=== PATIENT | female | born 1955 | race Caucasian/White ===

== ENCOUNTER → 2018-11-23 10:32 | Outpatient (CLI) | payer OTHER, SELFPAY ==
--- NOTE | 2018-11-23 10:37 | XR_ITS ---
XR chest 2V HISTORY: Wheezing with rhonchi, cough ITS.REASON: COUGH ORDERING PHYSICIAN: Peter Isaac MD PATIENT AGE: 63 years COMPARISON: 01/14/2015 FINDINGS: The cardiomediastinal silhouette and pulmonary vascularity are within normal limits. The lungs are clear without infiltrates, suspicious nodules, or pleural effusions. There is mild hyperinflation suggesting small airway disease. No acute bony abnormalities. IMPRESSION: Mild hyperinflation otherwise negative chest
== END ==
PROVIDERS: PCP Internal Medicine Adolescent Medicine; Visit Provider Internal Medicine Adolescent Medicine
DX: R05 Cough (principal)
CPT/HCPCS: 71046

== ENCOUNTER → 2019-02-18 10:10 | Outpatient (CLI) | payer OTHER, SELFPAY ==
[2019-02-18 10:51] LABS: Blood Urea Nitrogen 14 mg/dL (7-18); Estimated Glomerular Filt Rate 72 ml/min (>60); GFR (African American) 88 ML/MIN (>60)
--- NOTE | 2019-02-18 11:02 | CT_ITS ---
CT chest w con HISTORY: ITS.REASON: COUGH, wheeze, rhonchi ORDERING PHYSICIAN: Scott Linotn MD PATIENT AGE: 63 years COMPARISON: None TECHNIQUE: Axial images obtained following the administration of 75 mL of Optiray 350 . Sagittal, and coronal reformatted images are also generated and reviewed. All CT scans at the facility use one or more dose reduction, viz: automated exposure control, ma/kV adjustment per patient size (including targeted exams where dose is matched to indication, i.e. head), or iterative reconstruction technique. FINDINGS: Normal heart size. No evidence of aortic aneurysm or central pulmonary embolus. There are few scattered small mediastinal lymph nodes. There is coarsening of the interstitial markings. There is evidence of old granulomatous disease or dependent changes are present in the lung bases. No central obstructing lesions. No effusions or infiltrates. There is a faint groundglass subpleural opacity in the right lower lobe posteriorly 7 x 4 mm Upper abdominal images are unremarkable. IMPRESSION: Mild prominence of the interstitium suggesting mild interstitial lung disease. Groundglass subpleural opacity right lower lobe at 7 x 4 mm. Nonspecific. Consider 6 month follow-up
--- NOTE | 2019-02-18 11:26 | HMH.ITSHM ---
Current Home Medications as stated by this patient Mehreen Lloyd or client care representative. []INHALER
[2019-02-18 11:45] VITALS: PULSE 77
== END ==
PROVIDERS: Visit Provider Internal Medicine Adolescent Medicine
DX: R05 Cough (principal); R04.2 Hemoptysis; J30.2 Other seasonal allergic rhinitis
CPT/HCPCS: 36415; 71260; 82565; 84520; 94060; 94640; 94726; 94729; Q9967

== ENCOUNTER → 2019-04-26 15:42 | Outpatient (CLI) | payer OTHER, SELFPAY ==
--- NOTE | 2019-04-26 15:46 | MM_ITS ---
MM Dig screening mamm BI w/CAD CAD Screening COMPARISON: Digital mammograms with CAD 05/19/2016 INDICATION: There is a history of breast cancer in patient's sister diagnosed at age 40. There has been previous biopsy right breast for benign disease. TECHNIQUE: Standard CC and MLO images were obtained. R2 CAD reviewed. FINDINGS: Moderate fibroglandular densities are seen in the central portions of both breast and the findings are bilateral and symmetrical. There is no suspicious lesion in either breast and there are no suspicious microcalcifications. There are couple benign-appearing calcifications in each breast. There is faint arterial calcification left breast. IMPRESSION: Moderate breast density with no suspicious lesion seen BI-RADS Category: 2 Benign Finding(s) RECOMMENDED FOLLOW-UP: 1YR - 1 YEAR FOLLOW-UP (A letter has been sent to the patient regarding results of the study.)
== END ==
PROVIDERS: PCP Internal Medicine Adolescent Medicine; Visit Provider Internal Medicine Adolescent Medicine
DX: Z12.31 Encounter for screening mammogram for malignant neoplasm of breast (principal)
CPT/HCPCS: 77067

== ENCOUNTER → 2020-09-26 14:56 | Outpatient (CLI) | payer MEDICARE, SELFPAY ==
--- NOTE | 2020-09-26 | XR_ITS ---
PROCEDURE: XR HAND LT MIN 3V CLINICAL INDICATION: HAND ARTHRITIS COMPARISON: No exams were available for comparison FINDINGS: No fracture or dislocation. No lytic or blastic change. There is normal mineralization. Mild osteoarthritis of the 1st metacarpal-carpal joint, the 1st interphalangeal joint, and the DIP joints of digits 2 through. Mild osteoarthritis of the scapho trapezium joint Other findings:None. IMPRESSION: Mild osteoarthritis Dictated by: Ariel Fritz MD 09/26/2020 15:40 Ariel Fritz MD in [facility] 09/26/2020 15:40
--- NOTE | 2020-09-26 | XR_ITS ---
PROCEDURE: XR HAND RT MIN 3V CLINICAL INDICATION: HAND ARTHRITIS COMPARISON: No exams were available for comparison FINDINGS: No fracture or dislocation. No lytic or blastic change. There is normal mineralization. There are mild osteoarthritic changes involving the DIP digits 2 through 5 and the interphalangeal joint of the thumb as well as the 1st metacarpal phalangeal joint. No fracture or dislocation. No lytic or blastic change. Other findings:None. IMPRESSION: Mild osteoarthritis Dictated by: Ariel Fritz MD 09/26/2020 15:39 Ariel Fritz MD in [facility] 09/26/2020 15:39
== END ==
PROVIDERS: PCP Internal Medicine Adolescent Medicine; Visit Provider Internal Medicine Adolescent Medicine
DX: M19.042 Primary osteoarthritis, left hand (principal); M19.041 Primary osteoarthritis, right hand
CPT/HCPCS: 73130

== ENCOUNTER → 2021-09-04 10:43 | Outpatient (CLI) | payer MEDICARE, OTHER, SELFPAY ==
--- NOTE | 2021-09-04 10:46 | MM_ITS ---
PROCEDURE INFORMATION: Exam: MG Bilateral Screening 3D Mammography Exam date and time: 09/04/2021 10:46 AM Age: 66 years old Clinical indication: Screening exam; Family history of breast cancer; Prior surgery; Surgery date: 6+ months TECHNIQUE: Imaging protocol: Bilateral screening tomosynthesis and 2D mammography including computer-aided detection (CAD) when performed. COMPARISON: 1. MG DIG MAMM-SCREEN ERI 04/26/2019 3:54 PM 2. MG DMSB DIG MAMM-SCREEN ERI 05/19/2016 9:53 AM 3. MG DMSB DIG MAMM-SCREEN ERI 12/11/2014 3:20 PM FINDINGS: MAMMOGRAPHY: Breast composition: The breasts are heterogeneously dense, which may obscure small masses. Mass: No suspicious masses. Architectural distortion: No suspicious distortion. Calcifications: No suspicious calcifications. Asymmetric density: None. Skin thickening: None. Axillary adenopathy: None. IMPRESSION: No mammographic evidence of malignancy. Annual screening is recommended unless otherwise clinically indicated. ASSESSMENT: BI-RADS Category 1: Negative
== END ==
PROVIDERS: PCP Internal Medicine Adolescent Medicine; Visit Provider Internal Medicine Adolescent Medicine
DX: Z12.31 Encounter for screening mammogram for malignant neoplasm of breast (principal)
CPT/HCPCS: 77063; 77067

== ENCOUNTER 2022-07-16 18:02 | Observation (INO) | payer MEDICARE, OTHER, SELFPAY ==
[2022-07-16 18:03] VITALS: BP 159/83; PULSE 75; RESP 16; TEMP 36.7; O2SAT 100; BMI 21.1
--- NOTE | 2022-07-16 18:06 | ECG_ITS ---
APPROVED REPORT Exam: Resting ECG HR:77 bpm ECG Measurements Heart Rate 77 AXES VA 159 P 55 QRSd 86 QRS 56 QT 364 T 59 QTc 396 Conclusion SINUS RHYTHM MINIMAL ST DEPRESSION [0.025+ mV ST DEPRESSION] BORDERLINE ECG UNCONFIRMED REPORT Electronically signed by : Scott Linton MD 07/17/2022 15:57:15
--- NOTE | 2022-07-16 18:06 | CT_ITS ---
PROCEDURE INFORMATION: Exam: CT Head Without Contrast Exam date and time: 07/16/2022 6:05 PM Age: 67 years old Clinical indication: Stroke-like symptoms; RT upper extremity and RT lower extremity weakness; Additional info: Right side weakness TECHNIQUE: Imaging protocol: Computed tomography of the head without contrast. Radiation optimization: All CT scans at this facility use at least one of these dose optimization techniques: automated exposure control; mA and/or kV adjustment per patient size (includes targeted exams where dose is matched to clinical indication); or iterative reconstruction. Other technique: STROKE PROTOCOL was implemented. COMPARISON: No relevant prior studies available. FINDINGS: Brain: Normal. No hemorrhage. Unremarkable white matter. No mass effect. Cerebral ventricles: No ventriculomegaly. Paranasal sinuses: Visualized sinuses are unremarkable. No fluid levels. Mastoid air cells: Visualized mastoid air cells are well aerated. Bones/joints: Unremarkable. No acute fracture. Soft tissues: Unremarkable. IMPRESSION: No acute intracranial abnormality. ASSESSMENT: ASPECTS ([place] Stroke Program Early CT Score) is 10.
--- NOTE | 2022-07-16 18:07 | XR_ITS ---
PROCEDURE INFORMATION: Exam: XR Chest Exam date and time: 07/16/2022 6:24 PM Age: 67 years old Clinical indication: Cough TECHNIQUE: Imaging protocol: Radiologic exam of the chest. Views: 1 view. COMPARISON: CHESTW CT chest w con 02/18/2019 11:01 AM FINDINGS: Lungs: Unremarkable. No consolidation. Pleural spaces: Unremarkable. No pleural effusion. No pneumothorax. Heart/Mediastinum: Unremarkable. No cardiomegaly. Bones/joints: Unremarkable. IMPRESSION: No acute findings.
--- NOTE | 2022-07-16 18:16 | PC.NURSE ---
PT RETURNED FROM CT
--- NOTE | 2022-07-16 18:20 | PC.NURSE ---
DEIRDRE called to speak with ER Doc about the stroke alert for this pt
[2022-07-16 18:21] LABS: Basophils # 0.1 K/mm3 (0-0.2); Basophils % 2.1 % (0.1-2.0); Eosinophils # 0.1 K/mm3 (0.0-0.4); Eosinophils % 2.1 % (0.1-12.0); Hematocrit 44.8 % (37.0-47.0); Lymphocytes # 2.7 K/mm3 (0.7-4.5); Lymphocytes % 49.1 % (10-50); Mean Corpuscular HGB Conc 33.4 g/dL (31.8-35.4); Mean Corpuscular Hemoglobin 32.2 pg (27.0-31.2); Mean Corpuscular Volume 96.2 fl (81-99); Mean Platelet Volume 7.6 fl (7.4-10.4); Monocytes # 0.3 K/mm3 (0.1-1.0); Monocytes % 4.5 % (1.7-9.3); Neutrophils # 2.3 K/mm3 (1.8-7.8); Neutrophils % 42.2 % (37.0-80.0); Platelet Count 335 K/mm3 (142-424); Red Blood Count 4.65 M/mm3 (4.20-5.40); Red Cell Distribution Width 13.3 % (11.5-17.5); White Blood Count 5.5 K/mm3 (4.8-10.8)
[2022-07-16 18:23] LABS: Chloride 102 mmol/L (98-107); Potassium 3.5 mmoL/L (3.5-5.1); Sodium 142 mmol/L (136-145)
--- NOTE | 2022-07-16 18:25 | CT_ITS ---
PROCEDURE INFORMATION: Exam: CTA Head With Contrast, Arteriography Exam date and time: 07/16/2022 6:37 PM Age: 67 years old Clinical indication: Stroke-like symptoms; Generalized weakness TECHNIQUE: Imaging protocol: Computed tomographic angiography of the head with contrast. Exam focused on the arteries. 3D rendering (Not supervised by radiologist): MIP and/or 3D reconstructed images were created by the technologist. Radiation optimization: All CT scans at this facility use at least one of these dose optimization techniques: automated exposure control; mA and/or kV adjustment per patient size (includes targeted exams where dose is matched to clinical indication); or iterative reconstruction. Contrast material: ISOVUE; Contrast volume: 100 ml; Contrast route: INTRAVENOUS (IV); COMPARISON: CT HEAD/BRAIN WO CON 07/16/2022 6:05 PM FINDINGS: ANTERIOR CIRCULATION: Right internal carotid artery: Intracranial segment is patent with no significant stenosis. No aneurysm. Right middle cerebral artery: No occlusion or significant stenosis. No aneurysm. Right anterior cerebral artery: No occlusion or significant stenosis. No aneurysm. Left internal carotid artery: Intracranial segment is patent with no significant stenosis. No aneurysm. Left middle cerebral artery: No occlusion or significant stenosis. No aneurysm. Left anterior cerebral artery: No occlusion or significant stenosis. No aneurysm. POSTERIOR CIRCULATION: Right vertebral artery: No occlusion or significant stenosis. No aneurysm. Left vertebral artery: No occlusion or significant stenosis. No aneurysm. Basilar artery: No occlusion or significant stenosis. No aneurysm. Right posterior cerebral artery: No occlusion or significant stenosis. No aneurysm. Left posterior cerebral artery: No occlusion or significant stenosis. No aneurysm. Brain: No definite mass, mass effect, or midline shift. Refer to the head CT report from the same day. Cerebral ventricles: No ventriculomegaly. Bones/joints: No acute fracture. Soft tissues: Unremarkable. IMPRESSION: No large vessel arterial occlusion on this CTA head.
--- NOTE | 2022-07-16 18:25 | CT_ITS ---
PROCEDURE INFORMATION: Exam: CTA Neck With Contrast Exam date and time: 07/16/2022 6:37 PM Age: 67 years old Clinical indication: Stroke-like symptoms; Generalized weakness TECHNIQUE: Imaging protocol: Computed tomographic angiography of the neck with contrast. 3D rendering (Not supervised by radiologist): MIP and/or 3D reconstructed images were created by the technologist. Radiation optimization: All CT scans at this facility use at least one of these dose optimization techniques: automated exposure control; mA and/or kV adjustment per patient size (includes targeted exams where dose is matched to clinical indication); or iterative reconstruction. Contrast material: ISOVUE; Contrast volume: 100 ml; Contrast route: INTRAVENOUS (IV); COMPARISON: CT HEAD/BRAIN WO CON 07/16/2022 6:05 PM FINDINGS: Right common carotid artery: Artifact limits evaluation of the proximal right common carotid artery. No significant stenosis or occlusion of the remaining right common carotid artery. Right internal carotid artery: Extracranial segment is patent with no stenosis. No dissection or occlusion. Increased tortuosity of the right internal carotid artery. Right external carotid artery: No occlusion or significant stenosis. Left common carotid artery: Artifact limits evaluation of the left common carotid artery. No occlusion. Left internal carotid artery: Extracranial segment is patent with no stenosis. No dissection or occlusion. Increased tortuosity of the left internal carotid artery. Left external carotid artery: No occlusion or significant stenosis. Right vertebral artery: No significant stenosis. No dissection or occlusion. Left vertebral artery: Mild stenosis at the origin of the left vertebral artery. Atherosclerosis. Right subclavian artery: The right subclavian artery is patent, as visualized. Left subclavian artery: Atherosclerosis and moderate stenosis at the origin of the left subclavian artery. Venous enhancement and artifact limit evaluation of the left subclavian artery. Aorta: Artifact limits evaluation of the ascending aorta. Atherosclerosis of the aortic arch. Larynx: Paraglottic foci of gas, suggestive of laryngoceles. Thyroid: A few thyroid nodules are visualized. Within the left thyroid lobe, there is a 6-7 mm nodule. Lymph nodes: Calcified mediastinal and right hilar lymph nodes are identified, suggestive of granulomatous disease. Soft tissues: No significant soft tissue swelling. Bones/joints: The posterior C1 arch is unfused. Reversal of the lordotic curvature of the cervical spine. Degenerative changes identified at multiple cervical levels. Varying degrees of neural foraminal narrowing are identified at multiple cervical levels. A small central protrusion is identified at C4-C5, with minimal spinal canal stenosis. Mild spinal canal stenosis at C6-C7. Lungs: Nonspecific increased interstitial markings are again visualized. IMPRESSION: 1. No stenosis of the extracranial internal carotid arteries bilaterally using NASCET criteria. Increased tortuosity of these vessels. 2. Atherosclerosis and moderate stenosis at the origin of the left subclavian artery. 3. Mild stenosis at the origin of the left vertebral artery. 4. Additional findings described above. COMMENTS: Consistent with the [employer]'s Incidental Findings Committee white paper (J Am Kierra Radiol 2015): In patients aged 35 years and older with an incidental thyroid nodule equal to or greater than 1.[address], MRI or extrathyroidal US, further evaluation with dedicated thyroid US is recommended for patients with n
[2022-07-16 18:26] LABS: Alanine Aminotransferase 21 U/L (12-78); Albumin Level 4.7 g/dl (3.5-5.0); Albumin/Globulin Ratio 1.4 (1.1-1.8); Alkaline Phosphatase 33 U/L (38-126); Anion Gap 16.5 mEq/L (5-15); Aspartate Amino Transferase 41 U/L (14-36); Bilirubin,Total 0.3 mg/dl (0.2-1.3); Blood Urea Nitrogen 10 mg/dl (7-17); Calcium 9.9 mg/dl (8.4-10.2); Carbon Dioxide 27 mmol/L (22.0-30.0); Creatinine Clearance Estimated 51 mL/min (50-200); Estimated Glomerular Filt Rate 83 ml/min (>60); GFR (African American) 101 ML/MIN (>60); Globulin 3.3 g/dL (1.3-3.2); Glucose 162 mg/dl (74-100)
[2022-07-16 18:29] LABS: Activated Partial Thrombo Time 26.1 seconds (22.8-30.6); INR 0.93 (0.9-1.1); Prothrombin Time 10.1 seconds (10.1-12.5)
[2022-07-16 18:30] VITALS: BP 144/74; PULSE 70; O2SAT 100
[2022-07-16 18:36] LABS: NT Pro Brain Natriuretic Pep. 108 pg/mL (0-125)
--- NOTE | 2022-07-16 18:39 | HMH.EDGENADL ---
Discharge Plan Disposition Patient Disposition: Still a Patient Condition: Fair Prescriptions Prescriptions: No Action No Known Home Medications Referrals Follow up/Referrals: Scott Linton MD [Primary Care Provider] - See instructions Clinical Impressions Clinical Impression: Brain TIA Discharge ED Provider: Elfego Dempsey General Adult HPI General Chief complaint: Extremity Problem,Nontraumatic Stated complaint: poss stroke Time Seen by Provider: 07/16/22 18:10 Mode of Arrival: Wheelchair Source of Information: Patient Limitations: No Limitations Description of Symptoms (Recalled from ER Triage Doc. by RN): c/o right numbness and tingling that started approx 20 minutes prior to arrival. NIHSS 7, glucose was 169 History of Present Illness HPI narrative: This is a 67-year-old female presented to the emergency department with some right-sided weakness. Patient states that it started about 20 minutes prior to arrival. She states that she just finished cleaning up after dinner and sat down. She started getting some numbness and tingling in her right arm and right leg. Feeling her face was numb as well. Patient states that her symptoms have persisted so she came to the emergency department. Patient states that symptoms are slightly improving at this time. She has no medical history. Takes no medications. She denies any headache or change in vision. No chest pain or shortness of breath. No abdominal pain or vomiting. No diarrhea. Related Data Home Medications Medication Instructions Recorded Confirmed No Known Home Medications 07/16/22 07/16/22 Allergies Allergy/AdvReac Type Severity Reaction Status Date / Time No Known Allergies Allergy Verified 10/24/18 10:[address] [facility] Social History Smoking Status: Never smoker alcohol intake: never current occupational status: employed Travel in the last 8 weeks: None household members: family housing: house ROS Obtained: Yes All systems reviewed & no additional complaints except as documented and Yes Systems reviewed as appropriate & no additional complaints except as documented Constitutional Constitutional: Reports weakness Eyes Eyes: Denies change in vision Cardiovascular Cardiovascular: Denies chest pain and Denies dyspnea Respiratory Respiratory: Denies dyspnea Gastrointestinal Gastrointestingal: Denies vomiting Musculoskeletal Musculoskeletal: Denies arthralgias Integumentary/Breasts Skin/Breast: Denies rash Neurologic Neurologic: Reports weakness Physical Exam General General appearance: alert and in no apparent distress Head Head exam: atraumatic and normocephalic Eye Eye exam: Present normal appearance, PERRL and EOMI Respiratory Respiratory exam: Present normal lung sounds bilaterally; Absent respiratory distress Cardiovascular Cardiovascular exam: Present regular rate and normal rhythm Abdominal Exam Abdominal exam: Present soft; Absent distention, tenderness, guarding, rebound, rigidity or mass Extremities Exam Extremities exam: Present normal inspection; Absent tenderness Neurological Exam Neurological exam: Present alert, oriented X3, CN II-XII intact and normal gait Expanded Neurological Exam Comment: Patient has some mild weakness to gravity in the right upper and right lower extremity. Sensation appears intact. There is no dysarthria, no tremor. No dysdiadochokinesia. Medical Decision Making Medical Records Medical records reviewed: Yes I reviewed the patient's medical records. Ronny Inquiry Pt receiving controlled substance: No Vital Signs: 07/16/22 18:03 07/16/22 18:30 Temperature 98.0 F Temperature Source Oral Pulse Rate 70 Pulse Rate [Left Radial] 75 Respiratory Rate 16 Blood Pressure 144/74 H Blood Pressure [Right Arm] 159/83 H Blood Pressure Mean 106 Blood Pressure Mean [Right Arm] 108 Blood Pressure Source [
[2022-07-16 18:41] LABS: Troponin I < 0.01 ng/ml (0.00-0.034)
[2022-07-16 18:57] LABS: Thyroid Stimulating Hormone 0.32 uIU/mL (0.465-4.68)
--- NOTE | 2022-07-16 19:22 | PC.NURSE ---
Dr. Royer zuluaga for ED doctor
--- NOTE | 2022-07-16 19:24 | PC.NURSE ---
Dr. Dempsey s/w [facility]
[2022-07-16 19:48] LABS: Coronavirus 19, PCR Not Detected (NotDetected); Influenza A, PCR Not Detected (NotDetected); Influenza B, PCR Not Detected (NotDetected)
[2022-07-16 20:15] VITALS: BP 123/69; PULSE 69; RESP 16; TEMP 36.8; O2SAT 98
--- NOTE | 2022-07-16 21:26 | PC.NURSE ---
Dr. Linton returned called s/w Dr. Melendez, agrees to nahun. Called [facility], notified for bed assignment.
--- NOTE | 2022-07-16 21:28 | PC.NURSE ---
Updated pt on POC and admission
[2022-07-16 21:30] VITALS: BP 123/69; PULSE 69; RESP 16; TEMP 36.8; O2SAT 97; BMI 21.2
[2022-07-16 21:41] LABS: Troponin I < 0.01 ng/ml (0.00-0.034)
--- NOTE | 2022-07-16 21:45 | PC.NURSE ---
PT ARRIVED TO FLOOR VIA WHEEL CHAIR AT THIS TIME
[2022-07-16 23:00] VITALS: O2SAT 98
[2022-07-17 04:00] VITALS: BP 122/56; PULSE 55; RESP 16; TEMP 36.6; O2SAT 98
--- NOTE | 2022-07-17 04:58 | PC.NURSE ---
pt has rested well t/o shift, has ambulated with standby assist to BR, no complaints of pain or SOA, remains on room air, NIH score 0 this shift
[2022-07-17 06:35] LABS: Basophils % 0.8 % (0.1-2.0); Eosinophils # 0.1 K/mm3 (0.0-0.4); Eosinophils % 2.7 % (0.1-12.0); Hematocrit 41.6 % (37.0-47.0); Lymphocytes # 1.9 K/mm3 (0.7-4.5); Lymphocytes % 38.8 % (10-50); Mean Corpuscular HGB Conc 31.8 g/dL (31.8-35.4); Mean Corpuscular Hemoglobin 31.8 pg (27.0-31.2); Mean Corpuscular Volume 99.9 fl (81-99); Mean Platelet Volume 7.5 fl (7.4-10.4); Monocytes # 0.3 K/mm3 (0.1-1.0); Monocytes % 5.6 % (1.7-9.3); Neutrophils # 2.6 K/mm3 (1.8-7.8); Neutrophils % 52.2 % (37.0-80.0); Platelet Count 294 K/mm3 (142-424); Red Blood Count 4.16 M/mm3 (4.20-5.40); Red Cell Distribution Width 13.2 % (11.5-17.5); White Blood Count 4.9 K/mm3 (4.8-10.8)
[2022-07-17 06:48] LABS: Anion Gap 8.9 mEq/L (5-15); Blood Urea Nitrogen 10 mg/dl (7-17); Calcium 8.8 mg/dl (8.4-10.2); Carbon Dioxide 29 mmol/L (22.0-30.0); Chloride 108 mmol/L (98-107); Creatinine Clearance Estimated 52 mL/min (50-200); Estimated Glomerular Filt Rate 83 ml/min (>60); GFR (African American) 101 ML/MIN (>60); Glucose 88 mg/dl (74-100); Potassium 3.9 mmoL/L (3.5-5.1); Sodium 142 mmol/L (136-145)
[2022-07-17 06:56] LABS: Hemoglobin 13.3 g/dL (12.2-16.2)
--- NOTE | 2022-07-17 07:47 | P.CONPHA_ITS ---
[facility] Pharmacy VTE Monitoring Patient Demographics Admission date: 07/17/22 Report Date: 07/17/22 Time: 07:47 Patient Allergies No Known Allergies Allergy (Verified 07/16/22 22:20) Height: 1.68 m Weight: 59.931 kg Current Active Problems (Updated 07/16/22 @ 22:17 by Madison Walker RN) Brain TIA (Acute) VTE Risk Labs: VTE Related Lab Results Hgb 13.3 g/dL (12.2-16.2) D 07/17/22 06:02 Hct 41.6 % (37.0-47.0) 07/17/22 06:02 Plt Count 294 K/mm3 (142-424) 07/17/22 06:02 PT 10.1 seconds (10.1-12.5) 07/16/22 18:05 INR 0.93 (0.9-1.1) 07/16/22 18:05 APTT 26.1 seconds (22.8-30.6) 07/16/22 18:05 BUN 10 mg/dl (7-17) 07/17/22 06:02 Creatinine 0.70 mg/dl (0.52-1.04) 07/17/22 06:02 Estimated Creat Clear 52 mL/min (50-200) 07/17/22 06:02 VTE Score: 3 VTE Risk Level: Low Risk Prophylaxis VTE Prophylaxis Ordered?: Yes Types of VTE Prophylaxis: TEDS Knee High
[2022-07-17 08:00] VITALS: BP 115/60; PULSE 61; RESP 14; TEMP 36.5; O2SAT 100; O2SAT 97
--- NOTE | 2022-07-17 08:56 | EXP.HPDC ---
General Admission date:: 07/16/22 Discharge date: 07/17/22 *Admission Date: 07/17/22 *Chief complaint: Right arm hemiparesis *History of present illness: 67-year-old white female with excellent health, takes no medications and is a non-smoker over the past 25 years, who was at her home after supper and began to have right-sided facial numbness that went into her right arm and caused significant arm weakness and dysgraphia. She also had some numbness down into her right leg. She became understandably very concerned about this and came to the ER. The ER physician noted that she had weakness of the right arm and some discoordination of the right arm but did not notice facial drooping or asymmetry. She was subjected to stroke protocol with CTA of head and neck as well as CT scan of head. After about 3 hours her symptoms resolved while she was in the CT scanner. Exam normalized and her blood pressure also normalized from the 150 range systolically on presentation to the ER down to the 120s. However because of her significant symptoms and demonstrable weakness on exam she was admitted overnight for observation. This morning she feels well and has no complaints except for mild fatigue. [facility] Medical History (Updated 07/16/22 @ 22:17 by Madison Walker RN) No significant past medical history Surgical History (Updated 07/16/22 @ 22:18 by Madison Walker RN) History of tubal ligation Family History (Updated 07/16/22 @ 22:18 by Madison Walker RN) Lung cancer Father Social History (Updated 07/16/22 @ 22:19 by Madison Walker RN) Smoking Status: Never smoker alcohol intake: never current occupational status: retired Travel in the last 8 weeks: None household members: family housing: house Review of Systems Constitutional Constitutional: Reports weakness *Neurologic Neurologic: Reports weakness Exam Data for Last 24 hours Vital signs and Labs for Last 24 Hours: Temp Pulse Resp BP Pulse Ox 97.7 F 61 14 115/60 100 07/17/22 08:00 07/17/22 08:00 07/17/22 08:00 07/17/22 08:00 07/17/22 08:00 Laboratory Results - last 24 hr 07/16/22 18:05: WBC 5.5, RBC 4.65, Hgb 15.0, Hct 44.8, MCV 96.2, MCH 32.2 H, MCHC 33.4, RDW 13.3, Plt Count 335, MPV 7.6, Neut % (Auto) 42.2, Lymph % (Auto) 49.1, [place] % (Auto) 4.5, Eos % (Auto) 2.1, Baso % (Auto) 2.1 H, Neut # (Auto) 2.3, Lymph # (Auto) 2.7, [place] # (Auto) 0.3, Eos # (Auto) 0.1, Baso # (Auto) 0.1 07/16/22 18:05: PT 10.1, INR 0.93, APTT 26.1 07/16/22 18:05: Sodium 142, Potassium 3.5, Chloride 102, Carbon Dioxide 27, Anion Gap 16.5 H, BUN 10, Creatinine 0.70, Estimated Creat Clear 51, Estimated GFR 83, Est GFR ( Amer) 101, Glucose 162 H, Calcium 9.9, Total Bilirubin 0.3, AST 41 H, ALT 21, Alkaline Phosphatase 33 L, Troponin I < 0.01, NT-Pro-B Natriuret Pep 108, Total Protein 8.0, Albumin 4.7, Globulin 3.3 H, Albumin/Globulin Ratio 1.4, TSH 0.32 L 07/16/22 19:42: SARS-CoV-2 (PCR) Not detected, Influenza A Untype (PCR) Not detected, Influenza Type B (PCR) Not detected 07/16/22 21:10: Troponin I < 0.01 07/17/22 06:02: WBC 4.9, RBC 4.16 L, Hgb 13.3 D, Hct 41.6, MCV 99.9 H, MCH 31.8 H, MCHC 31.8, RDW 13.2, Plt Count 294, MPV 7.5, Neut % (Auto) 52.2, Lymph % (Auto) 38.8, [place] % (Auto) 5.6, Eos % (Auto) 2.7, Baso % (Auto) 0.8, Neut # (Auto) 2.6, Lymph # (Auto) 1.9, [place] # (Auto) 0.3, Eos # (Auto) 0.1, Baso # (Auto) 0.0 07/17/22 06:02: Sodium 142, Potassium 3.9, Chloride 108 H, Carbon Dioxide 29, Anion Gap 8.9, BUN 10, Creatinine 0.70, Estimated Creat Clear 52, Estimated GFR 83, Est GFR ( Amer) 101, Glucose 88 D, Calcium 8.8 I & O for Last 24 hours: Intake & Output 07/14/22 07/15/22 07/16/22 07/17/22 11:59 11:59 11:59 11:59 Intake Total 974 / 974 Output Total 0 / 0 Balance 974 / 974 Weight 132 lb 2 oz Constitutional Constitutional: no acute distress *Routine HEENT Exam Head: Present normocephalic Eye: Present EOMI and PERRL
--- NOTE | 2022-07-18 14:14 | CARE MANAGER ---
Contacted patient related to hospital discharge. She states she is doing better. She has her 3 new medications and is aware of her follow up appointments. Denies any questions or concerns. MANN López
== END 2022-07-17 10:35 | disposition home or self-care (01) ==
LOC: ER 19:49 → 2ND 21:30 → ER 07-17 00:49
PROVIDERS: Emergency Medicine; Admitting Provider Internal Medicine Adolescent Medicine; Emergency Provider Emergency Medicine; PCP Internal Medicine Adolescent Medicine; Visit Provider Internal Medicine Adolescent Medicine
DX: G45.9 Transient cerebral ischemic attack, unspecified (principal); I10 Essential (primary) hypertension; Z79.899 Other long term (current) drug therapy; Z20.822 Contact with and (suspected) exposure to COVID-19; R06.9 Unspecified abnormalities of breathing
CPT/HCPCS: G0378; 36415; 70450; 70496; 70498; 71045; 80048; 80053; 83880; 84443; 84484; 85025; 85610; 85730; 93005; 99285; C9803; Q9967; U0003; U0005

== ENCOUNTER → 2022-11-06 09:46 | Outpatient (CLI) | payer MEDICARE, OTHER, SELFPAY ==
--- NOTE | 2022-11-06 09:50 | MM_ITS ---
PROCEDURE INFORMATION: Exam: MG Bilateral Screening 3D Mammography Exam date and time: 11/06/2022 9:46 AM Age: 67 years old Clinical indication: Screening examination. Her sister had breast cancer at age 40. TECHNIQUE: Imaging protocol: Bilateral Screening tomosynthesis and 2D mammography including computer-aided detection (CAD) when performed. COMPARISON: 1. MG MM DIG SCREENING MAMM BI W/CAD 09/04/2021 11:13 AM 2. MG DIG MAMM-SCREEN ERI 04/26/2019 3:54 PM 3. MG DMSB DIG MAMM-SCREEN ERI 05/19/2016 9:53 AM 4. MG DMSB DIG MAMM-SCREEN ERI 12/11/2014 3:20 PM FINDINGS: MAMMOGRAPHY: Breast composition: The breasts are heterogeneously dense, which may obscure small masses. Mass: None. Architectural distortion: None. Calcifications: No suspicious calcifications. Asymmetric density: None. Skin thickening: None. Axillary adenopathy: None. IMPRESSION: No mammographic evidence of malignancy. Annual screening is recommended unless otherwise clinically indicated. ASSESSMENT: BI-RADS Category 1: Negative
== END ==
PROVIDERS: PCP Internal Medicine Adolescent Medicine; Visit Provider Internal Medicine Adolescent Medicine
DX: Z12.31 Encounter for screening mammogram for malignant neoplasm of breast (principal)
CPT/HCPCS: 77063; 77067

== ENCOUNTER 2023-11-13 08:10 | Outpatient (CLI) | payer MEDICARE, OTHER, SELFPAY ==
--- NOTE | 2023-11-13 08:17 | MM_ITS ---
PROCEDURE INFORMATION: Exam: MG Bilateral Screening 3D Mammography Exam date and time: 11/13/2023 8:10 AM Age: 68 years old Clinical indication: Screening mammogram TECHNIQUE: Imaging protocol: Bilateral Screening tomosynthesis and 2D mammography including computer-aided detection (CAD) when performed. COMPARISON: 1. MG MM DIG SCREENING MAMM BI W/CAD 11/06/2022 9:46 AM 2. MG MM DIG SCREENING MAMM BI W/CAD 09/04/2021 11:13 AM 3. MG DIG MAMM-SCREEN ERI 04/26/2019 3:54 PM 4. MG DMSB DIG MAMM-SCREEN ERI 05/19/2016 9:53 AM FINDINGS: MAMMOGRAPHY: Breast composition: The breast is heterogeneously dense, which may obscure small masses. Mass: None. Architectural distortion: No new or suspicious architectural distortion. Calcifications: No new or suspicious calcifications are present Asymmetric density: No new or suspicious asymmetric density is present Skin thickening: None. Axillary adenopathy: None. IMPRESSION: No mammographic evidence of malignancy. Recommend annual screening mammography unless otherwise clinically indicated. ASSESSMENT: BI-RADS category 1: Negative
--- NOTE | 2023-11-13 08:40 | XR_ITS ---
FINAL REPORT CLINICAL HISTORY: Osteoporosis screening COMPARISON: None FINDINGS: Using L1-4, the bone mineral density of the spine is 1.139 g/cm2, corresponding to T-score of 0.8 which is within normal limits. Using the left hip, the bone mineral density of the femoral neck is 0.910 g/cm2, corresponding to a T-score of -0.3 which is within normal limits. Using the right hip, the bone mineral density of the femoral neck is 0.910 g/cm2, corresponding to a T-score of -0.3 which is within normal limits. FRAX not reported because all T-scores at or above -1.0. NOTE: T-score: Standard deviation compared with peak bone mass of young adult mean. *Following the recommendations of the International Society of Bone densitometry, classification of hip BMD is based on the lower of two T-scores; total hip or femoral neck. IMPRESSION: Normal bone mineral density of the lumbar spine and hips. Reviewed, Interpreted and Dictated by Eduardo Addison MD Transcribed by Rosie Swann Authenticated and [facility]
== END 2023-11-13 23:59 ==
LOC: RAD 08:11
PROVIDERS: PCP Internal Medicine Adolescent Medicine; Visit Provider Internal Medicine Adolescent Medicine
DX: Z12.31 Encounter for screening mammogram for malignant neoplasm of breast (principal); Z13.820 Encounter for screening for osteoporosis; Z78.0 Asymptomatic menopausal state
CPT/HCPCS: 77063; 77067; 77080

== ENCOUNTER 2024-01-19 06:21 | Day surgery (SDC) | payer MEDICARE, OTHER, SELFPAY ==
[2024-01-18 09:35] VITALS: BMI 20.4
[2024-01-19] VITALS (11 sets, daily range): BP systolic 82–125; BP diastolic 47–69; PULSE 54–80; RESP 14–18; TEMP 36.5–36.8; O2SAT 94–100
[2024-01-19] MEDS: LACTATED RINGERS 1000ML 1,000 ML 25 ML IV (06:44)
--- NOTE | 2024-01-19 07:08 | HMH.SCOPE ---
Procedure: Date: 01/19/24 Patient Date of :: 1955 Procedure Performed:: Colonoscopy with polypectomy by means other than snare Indications:: Screening Performing Provider:: Aleks Reddy MD Referring Provider:: Dr. Linton Sedation:: Monitored anesthesia care Procedure:: After informed consent was obtained the patient was taken to the endoscopy suite. Sedation ensued after the patient was transferred to the left lateral decubitus position. Pulse, blood pressure, and oxygen saturation were monitored throughout the procedure. Digital rectal exam revealed no significant abnormality. The colonoscope was placed in position. The entire colon was evaluated. The colonoscope was carefully removed and the patient was transferred to recovery in stable condition. Please see findings and specimens below for detail. Findings:: Bowel preparation moderate Profound sigmoid tortuosity Significant spasticity/lack of relaxation (particularly within sigmoid colon) Pandiverticulosis Focal inflammatory changes between 15 and 25 cm Sessile periappendiceal polyp Specimens:: Sessile periappendiceal polyp (cold biopsy forceps Recommendations:: Barium enema in near future secondary to profound sigmoid tortuosity and severe spasticity Timing of repeat colonoscopy is pending pathology and pending results of barium enema but will likely be around 2-3 years with extended bowel preparation Consider next colonoscopy to be performed by the gastroenterology service secondary to above findings Complications:: No immediate Estimated blood obtained (mL): 1 Colonoscopy Component Colonoscopy Component Was a colonoscopy performed during today's procedure?: Yes Recommended follow up colonoscopy of at least 10 years?: No If no, follow up colonoscopy recommended in ___ years?: (See above) Reason for not recommending >/= 10 yr follow-up interval?: (See above)
== END 2024-01-19 09:50 | disposition home or self-care (01) ==
PROVIDERS: PCP Internal Medicine Adolescent Medicine; Visit Provider Surgery
PROC: 0DJD8ZZ Inspection of Lower Intestinal Tract, Via Natural or Artificial Opening Endoscopic (ICD-10-PCS; CPT 45380; principal; 2024-01-19 07:30)
DX: Z12.11 Encounter for screening for malignant neoplasm of colon (principal); K56.2 Volvulus; K57.30 Diverticulosis of large intestine without perforation or abscess without bleeding; K63.5 Polyp of colon
CPT/HCPCS: 45380; 88305; J2704

== ENCOUNTER 2024-04-25 10:48 | Outpatient (CLI) | payer MEDICARE, OTHER, SELFPAY ==
--- NOTE | 2024-04-25 10:49 | FL_ITS ---
FINAL REPORT TECHNIQUE: Single contrast barium was introduced by gravity drip. Spot and overhead films were obtained. CLINICAL HISTORY: COLON SPASM 2:03s FLUORO 110.14 MGY 2112.37 DAP COMPARISON: None. FINDINGS: The heat plant specialist film is unremarkable. There is scattered diverticulosis throughout the colon, worse involving the sigmoid colon. No constricting or obstructing lesions are identified to the level of the cecum. The appendix fills with contrast and a diverticulum is noted in the mid appendix. FLUOROSCOPY TIME: 2 minutes, 3 seconds FLUOROSCOPY EXPOSURE: 110.14 mGy FLUOROSCOPY FILMS: 34 IMPRESSION: No constricting or obstructing lesions to the level of the cecum. Scattered diverticulosis. Reviewed, Interpreted and Dictated by Barrett Beckford III, MD Transcribed by Kera Veliz PA-C Authenticated and [facility]
[2024-04-25] MEDS: BARIUM SULFATE(E-Z-AC);1900ML BOTTLE 3800 ML PO (11:23)
== END 2024-04-25 23:59 | disposition home or self-care (01) ==
LOC: RAD 10:49
PROVIDERS: PCP Nurse Practitioner Family; Visit Provider Surgery
DX: K58.9 Irritable bowel syndrome, unspecified (principal)
CPT/HCPCS: 74270

== ENCOUNTER 2024-05-27 12:27 | Outpatient (CLI) | payer MEDICARE, OTHER, SELFPAY ==
--- NOTE | 2024-05-27 12:31 | XR_ITS ---
FINAL REPORT CLINICAL HISTORY: LUNG CRACKLES COMPARISON: 07/16/2022 FINDINGS: Two views of the chest were obtained. The heart size and pulmonary vascularity are within normal limits. The mediastinum is normal. No acute pulmonary abnormality is identified. There is no pneumothorax. The bony thorax is intact. IMPRESSION: No active cardiopulmonary disease. Reviewed, Interpreted and Dictated by Barrett Beckford III, MD Transcribed by Sherri Anderson Authenticated and [facility]
== END 2024-05-27 23:59 | disposition home or self-care (01) ==
LOC: RAD 12:28
PROVIDERS: PCP Internal Medicine Adolescent Medicine; Visit Provider Physician Assistant
DX: R09.89 Other specified symptoms and signs involving the circulatory and respiratory systems (principal)
CPT/HCPCS: 71046

== ENCOUNTER 2024-05-29 10:04 | Emergency (ER) | payer MEDICARE, OTHER, SELFPAY ==
[2024-05-29 10:15] VITALS: BP 105/64; PULSE 98; RESP 17; TEMP 37.3; O2SAT 99; BMI 20.6
--- NOTE | 2024-05-29 10:28 | EXP.UTC ---
Discharge Plan Disposition Patient Disposition: Home, Self-Care Condition: Good Prescriptions Prescriptions: New azithromycin [Zithromax] 250 mg tablet 250 mg PO UD DOSE PK Qty: 6 0RF Rx Instructions: Take two (2) tablets today, then one (1) tablet days #2 thru #5 benzonatate 100 mg capsule 100 mg PO TIDP PRN (Reason: Cough) Qty: 30 0RF methylprednisolone 4 mg Tablets,Dose Pack 4 mg PO DIRECTED 6 Days Qty: 21 0RF Rx Instructions: Take 1 pack as directed for 6 days promethazine 25 mg tablet 25 mg PO TID PRN (Reason: nausea and vomiting) Qty: 20 0RF No Action aspirin 81 mg capsule 81 mg PO DAILY Qty: 90 3RF rosuvastatin 10 mg tablet 10 mg PO DAILY Qty: 90 2RF Referrals Follow up/Referrals: Scott Linton MD [Primary Care Provider] - See instructions Activity Restrictions/Add. Instructions Additional Instructions/Restrictions: Drink plenty of fluids. Take tylenol or ibuprofen for pain or fever. Take the medications as directed. Follow up with your regular doctor. GO TO THE ER FOR ANY WORSENING SYMPTOMS Clinical Impressions Clinical Impression: Acute viral syndrome, Sinusitis, Pharyngitis Instructions Patient Instructions: Sinusitis, DI for Sinusitis Print Language Print Language: Amharic Discharge ED Provider: Peter Souza [facility] General Stated complaint: sore throat, body aches, lower back pain Mode of Arrival: Ambulatory Source of Information: Patient Limitations: No Limitations Time Seen by Provider: 05/29/24 10:27 Description of Symptoms (Recalled from Triage Doc. by RN): PATIENT C/O SORE THROAT AND BILATERAL EAR PAIN X 2 DAYS HEENT Symptoms (Recalled from RN notes): Yes Resp Symptoms (Recalled from RN notes): No Skin Symptoms (Recalled from RN notes): No MS Symptoms (Recalled from RN notes): No Functional Status (Recalled from RN notes): WNL Related Data Previous Rx's ?Medication ?Instructions ?Recorded aspirin 81 mg capsule 81 mg PO DAILY #90 caps 07/17/22 rosuvastatin 10 mg tablet 10 mg PO DAILY #90 tabs 07/17/22 azithromycin 250 mg tablet 250 mg PO UD DOSE PK #6 tabs 05/29/24 (Zithromax) benzonatate 100 mg capsule 100 mg PO TIDP PRN Cough #30 caps 05/29/24 methylprednisolone 4 mg tablets in 4 mg PO DIRECTED 6 days #21 tabs 05/29/24 a dose pack promethazine 25 mg tablet 25 mg PO TID PRN nausea and 05/29/24 vomiting #20 tabs Allergies Allergy/AdvReac Type Severity Reaction Status Date / Time No Known Allergies Allergy Verified 04/27/24 09:36 Worker's Comp Is this a Worker's Comp case?: No [facility] Disclaimer: The information contained in this section may have been updated after the patient was seen, as this information can be updated by other users. Medical History COPD (chronic obstructive pulmonary disease) History of transient ischemic attack (TIA) Hyperlipidemia No significant past medical history Surgical History History of colonoscopy H/O hemorrhoidectomy History of tubal ligation Family History Father Lung cancer Sister Breast cancer Social History Smoking Status: Former smoker alcohol intake: never current occupational status: retired Travel in the last 8 weeks: None household members: family housing: house ROS Obtained: Yes All systems reviewed & no additional complaints except as documented Constitutional Constitutional: Reports chills and Reports fever(s) Eyes Eyes: Denies eye discharge ENT Ears, Nose, Mouth, and Throat: Reports as per HPI Cardiovascular Cardiovascular: Denies chest pain Respiratory Respiratory: Denies chest congestion and Reports cough Gastrointestinal Gastrointestingal: Reports nausea; Denies abdominal pain, constipation, cramping, diarrhea or vomiting Musculoskeletal Musculoskeletal: Denies arthralgias Integumentary/Breasts Skin/Breast: Denies rash Neurologic Neurologic: Denies paresthesias Physical Exam General General appearance: alert and in no apparent distress Eye Eye exam: Present normal appearance, PERRL and EOMI ENT ENT exam: Present mucous membranes moist and normal external ear exam Expanded ENT Exam External ear exam: Present normal external inspection TM/Canal exam: Bilateral TM: erythema and bulging Nose exam: Absent sinus tenderness Nasal speculum exam: Bilateral: normal Mouth exam: Present normal external inspection; Absent drooling Teeth exam: Present normal inspection Throat exam: Present tonsillar erythema and tonsillomegaly Neck Neck exam: Present normal inspection, full ROM and trachea midline; Absent tenderness, lymphadenopathy or thyromegaly Chest Chest inspection: Present normal inspection and symmetric chest wall rise; Absent tenderness or rash Respiratory Respiratory exam: Present normal lung sounds bilaterally; Absent respiratory distress, wheezes, stridor or accessory muscle use Cardiovascular Cardiovascular exam: Present regular rate, normal rhythm and normal heart sounds Abdominal Exam Abdominal exam: Present soft; Absent distention, tenderness, guarding, rebound or rigidity Extremities Exam Extremities exam: Present normal inspection, full ROM and normal capillary refill; Absent tenderness or calf tenderness Back Exam Back exam: Present normal inspection and full ROM; Absent tenderness Neurological Exam Neurological exam: Present alert and oriented X3 Psychiatric Psychiatric exam: Present normal affect and normal mood Skin Skin exam: Present warm, dry, intact and normal color Lymphatic Lymphatic Findings: no adenopathy Medical Decision Making Medical Records Medical records reviewed: No I reviewed the patient's medical records. Ronny Inquiry Pt receiving controlled substance: No Vital Signs: 05/29/24 10:15 Temperature 99.1 F Temperature Source Oral Pulse Rate [Left Brachial] 98 H Respiratory Rate 17 Blood Pressure [Left Arm] 105/64 L Blood Pressure Mean [Left Arm] 77 Blood Pressure Source [Left Arm] Automatic Cuff Blood Pressure Position [Left Arm] Sitting 02 Sat by Pulse Oximetry 99 Oxygen Delivery Method Room Air
[2024-05-29 10:29] LABS: UTC Strep Screen (Rapid) Negative (Negative)
[2024-05-29] MEDS: ONDANSETRON 4MG ODT 4 MG SL (10:55)
[2024-05-29 11:11] VITALS: BP 105/64; PULSE 98; RESP 17; TEMP 37.3; O2SAT 99
[2024-05-29 11:17] LABS: Influenza A, PCR Not Detected (NotDetected); Influenza B, PCR Not Detected (NotDetected)
[2024-05-29 11:41] LABS: Coronavirus 19, PCR Detected (NotDetected)
== END 2024-05-29 11:15 | disposition home or self-care (01) ==
PROVIDERS: Emergency Provider Nurse Practitioner Family; PCP Internal Medicine Adolescent Medicine
DX: U07.1 COVID-19 (principal); J02.9 Acute pharyngitis, unspecified; J01.90 Acute sinusitis, unspecified; H92.03 Otalgia, bilateral
CPT/HCPCS: 87636; 87880; 99204; 99212; G0463; Q0162

== ENCOUNTER 2025-01-23 10:42 | Outpatient (CLI) | payer MEDICARE, OTHER, SELFPAY ==
--- NOTE | 2025-01-23 10:44 | MM_ITS ---
PROCEDURE INFORMATION: Exam: MG Bilateral Screening 3D Mammography Exam date and time: 01/23/2025 10:48 AM Age: 69 years old Clinical indication: Screening examination. Her sister had breast cancer at age 40. TECHNIQUE: Imaging protocol: Bilateral Screening tomosynthesis and 2D mammography including computer-aided detection (CAD) when performed. COMPARISON: 1. MG MM DIG SCREENING MAMM BI W/CAD 11/13/2023 8:10 AM 2. MG MM DIG SCREENING MAMM BI W/CAD 11/06/2022 9:46 AM 3. MG MM DIG SCREENING MAMM BI W/CAD 09/04/2021 11:13 AM 4. MG DIG MAMM-SCREEN ERI 04/26/2019 3:54 PM FINDINGS: MAMMOGRAPHY: Breast composition: The breasts are heterogeneously dense, which may obscure small masses. Mass: No suspicious mass. Architectural distortion: None. Calcifications: No suspicious calcifications. Asymmetric density: None. Skin thickening: None. Axillary adenopathy: None. IMPRESSION: No mammographic evidence of malignancy. Annual screening is recommended unless otherwise clinically indicated. ASSESSMENT: BI-RADS Category 1: Negative.
== END 2025-01-23 23:59 | disposition home or self-care (01) ==
LOC: RAD 10:42
PROVIDERS: PCP Internal Medicine Adolescent Medicine; Visit Provider Internal Medicine Adolescent Medicine
DX: Z12.31 Encounter for screening mammogram for malignant neoplasm of breast (principal)
CPT/HCPCS: 77063; 77067